=== PATIENT | female | born 1960 | race African-American/Black ===

== ENCOUNTER 2024-08-22 17:04 | Emergency (ER) | payer OTHER ==
[~2024-08-22] VITALS: Ht 175.3 cm; Wt 109.0 kg
[2024-08-22 17:06] VITALS: O2SAT 98
[2024-08-22] MEDS ORDERED: ACETAMINOPHEN 325MG TABLET PO STA (18:57)
[2024-08-22] MEDS ORDERED: IBUPROFEN 600MG TABLET PO STA (18:57)
[2024-08-22 20:00] VITALS: BP 180/96; PULSE 90; RESP 20; TEMP 36.4; O2SAT 96
[2024-08-22] MEDS: IBUPROFEN 600MG TABLET PO NR (20:33)
[2024-08-22] MEDS: ACETAMINOPHEN 325MG TABLET PO NR (20:33)
[2024-08-22 20:43] LABS: BASOPHILS % 0.7 % (0.0-2.0); EOSINOPHILS % 0.1 % (0.0-5.0); HEMATOCRIT. 40.6 % (36.0-48.0); HEMOGLOBIN. 13.4 g/dL (12.0-16.0); LYMPHOCYTES % 15.8 % (20.0-50.0); MEAN CORPUSCULAR HEMOGLOBIN 30.4 pg (28.0-32.0); MEAN PLATELET VOLUME 7.9 fl (7.4-10.4); NEUTROPHILS % 78.4 % (40.0-76.0); PLATELET 289 x1000/uL (130-400); RED BLOOD CELL COUNT 4.41 mill/uL (4.2-5.4); RED CELL DISTRIBUTION WIDTH 13.6 % (11.6-14.6); WHITE BLOOD COUNT 12.1 x1000/uL (4.5-11.0)
[2024-08-22 20:49] LABS: CHLORIDE 102 mEq/L (98-107); SODIUM 143 mEq/L (136-145)
[2024-08-22 20:50] LABS: CARBON DIOXIDE 29 mEq/L (21-32)
[2024-08-22 20:51] LABS: CALCIUM 10.1 mg/dL (8.7-10.4)
[2024-08-22 20:55] LABS: CREATININE 1.1 mg/dL (0.6-1.0); GLUCOSE 118 mg/dL (70-105)
[2024-08-22 20:56] LABS: UREA NITROGEN BLOOD 22 mg/dL (9-23)
[2024-08-22] MEDS ORDERED: IBUP-2029 MT (21:29)
[2024-08-22] MEDS ORDERED: TOPUD PO (21:29)
== END 2024-08-22 21:46 | disposition home or self-care (01) ==
LOC: ER 17:04
DX: M54.2 Cervicalgia (principal); R10.84 Generalized abdominal pain
CPT/HCPCS: 36415; 76705; 80048; 85025; 99284